=== PATIENT | male | born 1980 | race Hispanic/Latino ===

== ENCOUNTER 2018-05-17 23:01 | Emergency (ER) | payer SELFPAY ==
--- OUTSIDE RECORDS SUMMARY | 2018-05-17 23:03 | XMS REPORT | Continuity of Care Document ---
:1980 Author Organization [facility] Address [address] [place] [address] Phone Unavailable Care Team Providers Name Role Phone AYLIN JENSEN MD Primary Care Physician Insurance Providers Guarantor Manny Peter Address [address] [place] [address] Email NONE Payer [facility] Policy Number [id number] Subscriber's Name Manny Peter Relationship Self / Same As Patient Group Number [id number] Group Name [employer] Advance Directives Directive Response Recorded Date/Time Advance Directive on File No 12/15/17 8:52pm Patient/Family Given Education Material R/T Y - 12/15/17..MA/SBM 12/15/17 8 :52pm Directives? Chief Complaint and Reason for Visit Chief Complaint General Complaint Reason for Visit Methadone withdrawal Gastroenteritis Anxiety about blushing Problems Active ProblemsNo active problem information available. Past Problems Medical Problem Onset Date Status Acute pharyngitis Unknown Acute Anxiety about blushing Unknown Acute Colitis Unknown Acute Dental caries Unknown Acute Gastroenteritis Unknown Acute Ischemic colitis Unknown Acute Left cervical lymphadenopathy Unknown Acute Methadone withdrawal Unknown Acute Pain due to dental caries Unknown Acute Pneumatosis coli Unknown Acute Sorethroat Unknown Acute Medications No medication information available. Social History Social History Problem Response Recorded Date/Time Onset Date Status Hx Physical Abuse No 12/15/2017 8:52pm Not Applicable Not Applicable Smoking Status Start Date Stop Date Current every day smoker Hospital Discharge Instructions No hospital discharge instruction information available. Plan of Care Discharge Date 12/16/17 1:06am Instructions/Education Provided Viral Gastroenteritis, Adult Generalized Anxiety Disorder, Adult Finding Treatment for Addiction Forms Provided Prescription Opioid Use Portal Welcome Letter Prescriptions See Medication Section Referrals AYLIN JENSEN MD Address: [address] [place] [address] Additional Instructions/Education Lorazepam 2mg 1 tab twice daily as needed for anxiety Functional Status No functional status information available. Allergies, Adverse Reactions, Alerts No known allergies. Immunizations No immunization information available. Vital Signs Acute Vital Signs Vital Response Date/Time Blood Pressure 144/69 mm Hg 12/16/2017 1:05am Pulse Pulse Rate (adult) 85 beats per minute (60 - 100) 12/16/2017 1:05am Respiratory Rate 18 breaths per minute (10 - 24) 12/16/2017 1:05am Temperature Source Oral 12/16/2017 1:05am Height 5 ft 11 in 12/15/2017 8:52pm Weight 174 lb 12/15/2017 8:52pm Body Mass Index 24.3 kg/m^2 12/15/2017 8:52pm Results Laboratory Results Test Name Result Units Flags Reference Collection Result Comments Date/Time Date/Time White Blood 17.2 K/ul H 4.0-12.3 12/15/2017 12/15/2017 Count 9:34pm 9:41pm Red Blood Count 5.22 M/ul 3.80-5.80 12/15/2017 12/15/2017 9:34pm 9:41pm Hemoglobin 16.1 g/dl 11.67-17.2 12/15/2017 12/15/2017 2 9:34pm 9:41pm Hematocrit 45.9 % 35.0-51.0 12/15/2017 12/15/2017 9:34pm 9:41pm Mean 88.1 fl 78-96 12/15/2017 12/15/2017 Corpuscular 9:34pm 9:41pm Volume Mean 30.9 pg 26.8-33.4 12/15/2017 12/15/2017 Corpuscular 9:34pm 9:41pm Hemoglobin Mean 35.1 g/dl 32.3-36.7 12/15/2017 12/15/2017 Corpuscular 9:34pm 9:41pm Hemoglobin Concent Red Cell 12.8 % 11.6-15.4 12/15/2017 12/15/2017 Distribution 9:34pm 9:41pm Width Platelet Count 485 K/ul H 115-328 12/15/2017 12/15/2017 9:34pm 9:41pm Mean Platelet 8.3 fl L 8.4-11.8 12/15/2017 12/15/2017 Volume 9:34pm 9:41pm Neutrophils (%) 68.5 % 44.7-82.4 12/15/2017 12/15/2017 (Auto) 9:34pm 9:41pm Lymphocytes (%) 24.4 % 10.0-50.0 12/15/2017 12/15/2017 (Auto) 9:34pm 9:41pm Monocytes (%) 5.7 % 3.9-13.4 12/15/2017 12/15/2017 (Auto) 9:34pm 9:41pm Eosinophils (%) 0.4 % 0.0-6.43 12/15/2017 12/15/2017 (Auto) 9:34pm 9:41pm Basophils (%) 0.9 % H 0.0-0.72 12/15/2017 12/15/2017 (Auto) 9:34pm 9:41pm Prothrombin 10.3 SECONDS 10.3-12.3 12/15/2017 12/15/2017 Time 9:34pm 9:51pm THERAPEUTIC LEVEL: 1.5 to 1.9 times normal range of PT Prothromb Time 0.93 12/15/2017 12/15/2017 International 9:34pm 9:51pm Recommended therapeutic range for patients receiving Ratio warfarin (coumadin) therapy: INR is 2.0 to 3.0 Recommended range for patients with mechanical prosthetic heart valves: INR is 2.5 to 3.5 Activated 29.9 SECONDS 22.5-37.0 12/15/2017 12/15/2017 Partial 9:34pm 9:51pm Thromboplast Time Urine Color YELLOW 12/15/2017 12/15/2017 10:05pm 10:26pm Urine CLEAR CLEAR 12/15/2017 12/15/2017 Appearance 10:05pm 10:26pm Urine Glucose NEGATIVE NEGATIVE 12/15/2017 12/15/2017 10:05pm 10:26pm Urine Bilirubin NEGATIVE NEGATIVE 12/15/2017 12/15/2017 10:05pm 10:26pm Urine Ketones NEGATIVE NEGATIVE 12/15/2017 12/15/2017 10:05pm 10:26pm Urine Specific 1.013 1.003-1.03 12/15/2017 12/15/2017 [place] 0 10:05pm 10:26pm Urine Blood NEGATIVE NEGATIVE 12/15/2017 12/15/2017 10:05pm 10:26pm Urine pH 6.500 5-9 12/15/2017 12/15/2017 10:05pm 10:26pm Urine Protein NEGATIVE NEGATIVE 12/15/2017 12/15/2017 10:05pm 10:26pm Urine NORMAL mg/dL 0.2-1.0 12/15/2017 12/15/2017 Urobilinogen 10:05pm 10:26pm Urine Nitrate NEGATIVE NEGATIVE 12/15/2017 12/15/2017 10:05pm 10:26pm Urine Leukocyte NEGATIVE NEGATIVE 12/15/2017 12/15/2017 Esterase 10:05pm 10:26pm Urine RBC <1 /hpf 0-5 12/15/2017 12/15/2017 10:05pm 10:26pm Urine WBC <1 /hpf 0-5 12/15/2017 12/15/2017 10:05pm 10:26pm Urine <1 /hpf 0-5 12/15/2017 12/15/2017 Epithelial 10:05pm 10:26pm Cells Urine Bacteria None /hpf None 12/15/2017 12/15/2017 Detected Detect 10:05pm 10:26pm Urine Casts None /lpf None 12/15/2017 12/15/2017 Detected Detect 10:05pm 10:26pm Urine Culture NO 12/15/2017 12/15/2017 Reflexed 10:05pm 10:26pm Random Glucose 99 mg/dL 74-106 12/15/2017 12/15/2017 9:34pm 9:56pm Blood Urea 12 mg/dL 6-20 12/15/2017 12/15/2017 Nitrogen 9:34pm 9:56pm Serum 285 280-300 12/15/2017 12/15/2017 Osmolality 9:34pm 9:56pm Creatinine 0.7 mg/dL 0.70-1.20 12/15/2017 12/15/2017 9:34pm 9:56pm Glomerular > 60.00 12/15/2017 12/15/2017 GFR RESULTS ARE REPORTED IN mL/min/1.73m2. Filtration Rate 9:34pm 9:56pm Calc Normal GFR: >60mL/min Moderately decreased GFR: 30-59 mL/min Severely decreased GFR: 15-29 mL/min Kidney Failure (or Dialysis): <15 mL/min The calculated eGFR is not valid for patients younger than 18 years or older than 75 years. BUN/Creatinine 17.1 12-12/15/2017 12/15/2017 Ratio 9:34pm 9:56pm Sodium Level 143 mmol/L 135-145 12/15/2017 12/15/2017 9:34pm 9:56pm Potassium Level 3.7 mmol/L 3.5-5.2 12/15/2017 12/15/2017 9:34pm 9:56pm Chloride Level 102 mmol/L 98-108 12/15/2017 12/15/2017 9:34pm 9:56pm Carbon Dioxide 25 mmol/L 21-32 12/15/2017 12/15/2017 Level 9:34pm 9:56pm Anion Gap 19.7 mEq/L 03-0812/15/2017 12/15/2017 9:34pm 9:56pm Calcium Level 9.9 mg/dL 8.6-10.0 12/15/2017 12/15/2017 9:34pm 9:56pm Total Protein 8.5 g/dL 6.6-8.7 12/15/2017 12/15/2017 9:34pm 9:56pm Albumin 5.0 g/dL 3.5-5.2 12/15/2017 12/15/2017 9:34pm 9:56pm Globulin 3.5 gm/dL 12/15/2017 12/15/2017 9:34pm 9:56pm Albumin/Globuli 1.4 >1.0 12/15/2017 12/15/2017 n Ratio 9:34pm 9:56pm Total Bilirubin < 0.3 mg/dL 0.0-1.2 12/15/2017 12/15/2017 9:34pm 9:56pm Aspartate Amino 16 U/L 15-40 12/15/2017 12/15/2017 Transf 9:34pm 9:56pm (AST/SGOT) Alanine 18 U/L 0-41 12/15/2017 12/15/2017 Aminotransferas 9:34pm 9:56pm e (ALT/SGPT) QG-Lgy-Y-Type 50 pg/mL 0-125 12/15/2017 12/15/2017 Natriuretic 9:34pm 10:00pm Peptide Total Alkaline 59 U/L 40-130 12/15/2017 12/15/2017 Phosphatase 9:34pm 9:56pm Urine NEGATIVE NG/ML NEGATIVE 12/15/2017 12/15/2017 Amphetamines 10:07pm 10:33pm Screen Urine NEGATIVE NG/ML NEGATIVE 12/15/2017 12/15/2017 Barbiturates, 10:07pm 10:33pm Quantitative Urine NEGATIVE NG/ML NEGATIVE 12/15/2017 12/15/2017 Benzodiazepines 10:07pm 10:33pm Screen Urine NEGATIVE NG/ML NEGATIVE 12/15/2017 12/15/2017 Cannabinoids 10:07pm 10:33pm Urine Cocaine NEGATIVE NG/ML NEGATIVE 12/15/2017 12/15/2017 Metabolite 10:07pm 10:33pm Urine Opiates NEGATIVE NG/ML NEGATIVE 12/15/2017 12/15/2017 Screen 10:07pm 10:33pm Urine NEGATIVE NG/ML NEGATIVE 12/15/2017 12/15/2017 Phencyclidine 10:07pm 10:33pm (PCP) Level Methadone Level NEGATIVE NG/ML NEGATIVE 12/15/2017 12/15/2017 10:07pm 10:33pm Propoxyphene NEGATIVE NG/ML NEGATIVE 12/15/2017 12/15/2017 Level 10:07pm 10:33pm Oxycodone Level NEGATIVE NG/ML NEGATIVE 12/15/2017 12/15/2017 10:07pm 10:33pm Urine Drug . 12/15/2017 12/15/2017 DRUGS OF ABUSE CUT-OFF VALUES Screen Note 10:07pm 10:12pm AMPHETAMINES (AMPH) NEGATIVE (CUT OFF CONC: 1000 NG/ML) BARBITUATES (SANDEEP) NEGATIVE (CUT OFF CONC: 200 NG/ML) BENZODIAZEPINES (RADU) NEGATIVE (CUT OFF CONC: 300 NG/ML) CANNABINOIDS (THC) NEGATIVE (CUT OFF CONC: 50 NG/ML) COCAINE (CHICHO) NEGATIVE (CUT OFF CONC: 300 NG/ML) OPIATES (OPI) NEGATIVE (CUT OFF CONC: 300 NG/ML) PHENCYCLIDINE (PCP) NEGATIVE (CUT OFF CONC: 25 NG/ML)METHADONE (MTD) NEGATIVE (CUT OFF CONC: 300 NG/ML) PROPOXYPHENE (PPX) NEGATIVE (CUT OFF CONC: 300 NG/ML) OXYCODONE (OXY) NEGATIVE (CUT OFF CONC: 100 NG/ML) ANY POSITIVE RESULT IS UNCONFIRMED. CONFIRMATION AND QUANTITATION AVAILABLE UPON MD REQUEST. Creatine Kinase 38 U/L 20-200 12/15/2017 12/15/2017 9:34pm 9:56pm Troponin I < 0.30 ng/mL 0.0-0.5 12/15/2017 12/15/2017 9:34pm 10:00pm Creatine Kinase < 1.0 ng/ml 0.0-3.6 12/15/2017 12/15/2017 MB 9:34pm 10:00pm DIAGNOSTIC CITERIA: CKMB CKMB RELATIVE INDEX SUGGESTIVE OF NON-AMI < or=5 N/A CHRISTINE ZONE (INCONCLUSIVE) > 5 < or=4 SUGGESTIVE OF AMI >5 > 4 Myoglobin < 25 ng/mL L 28-72 12/15/2017 12/15/2017 9:34pm 10:00pm Procedures Procedure Status Date Provider(s) EMERGENCY DEPT VISIT Completed 11/21/17 X-ray of chest, single view Completed 12/15/17 ANNELISE GRAY MD Encounters Encounter Location Arrival/Admit Date Discharge/Depart Date Attending Provider Departed [place] 12/15/17 8:42pm 12/16/17 1:06am [facility] Emergency Room [facility] Departed [place] 11/21/17 4:01pm 11/21/17 4:26pm [facility] Recent Diagnosis
[2018-05-17] MEDS ORDERED: LIDOCAINE VISCOUS 2% SOLN 15 ML UDC ONE (23:41)
[2018-05-17] MEDS ORDERED: LIDOCAINE JELLY 2%- 5 ML TUBE ONE (23:43)
[2018-05-17] MEDS ORDERED: CLINDAMYCIN IV 150 MG/ML (4 mL) VIAL ONE (23:45)
[2018-05-18] MEDS ORDERED: HYDROCODONE/APAP 5/325 MG TAB ONE (00:26)
--- NOTE | 2018-05-18 01:02 | EDPHYS ---
Physician Documentation [facility] Name: Manny Peter Age: 37 yrs Sex: Male : 1980 Arrival Date: 05/17/2018 Time: 23:05 Bed 19 Private MD: Hao Kahn ED Physician Russell Dao Historical: - Allergies: 05/17 23:09 No Known Allergies; jb4 - Home Meds: 23:09 None [Active]; jb4 - PMHx: 23:09 None; jb4 - PSHx: 23:09 None; jb4 - Immunization history:: Adult Immunizations up to date, Flu vaccine is not up to date. - Social history:: Smoking status: Patient uses tobacco products, smokes one-half pack cigarettes per day, Patient/guardian denies using alcohol. - Ebola Screening: : No symptoms or risks identified at this time. Vital Signs: 23:09 BP 146 / 105; Pulse 90; Resp 16; Temp 99.1(O); Pulse Ox 100% on R/A; Weight 77.11 kg jb4 (R); Height 5 ft. 11 in. (180.34 cm) (R); Pain 6/10; 05/18 00:00 BP 124 / 84; Pulse 80; Resp 16; Pulse Ox 99% on R/A; jb4 00:45 BP 136 / 98; Pulse 78; Resp 18; Pulse Ox 100% on R/A; jb4 05/17 23:09 Body Mass Index 23.71 (77.11 kg, 180.34 cm) jb4 MDM: 05/17 23:30 Patient medically screened. snw 05/18 00:29 Order name: Hand Left 3 View XRAY snw Administered Medications: 23:44 Drug: Lidocaine Gel 2 % 1 application Route: Mucous Membrane; jb4 05/18 01:10 Follow up: Response: No adverse reaction jb4 05/17 23:44 Drug: Clindamycin 600 mg Route: IM; Site: right gluteus; jb4 05/18 01:10 Follow up: Response: No adverse reaction jb4 00:00 Drug: [place]re[place] 5 mg-325 mg 1 tabs Route: PO; jb4 01:10 Follow up: Response: No adverse reaction; Pain is decreased jb4 Disposition: 07:49 Co-signature as Attending Physician, Russell Dao MD. wa Disposition: 05/18/18 01:01 Discharged to Home. Impression: Cellulitis of left upper limb - hand. - Condition is Stable. - Discharge Instructions: Cellulitis, Adult, Hand Washing, Hand Pain. - Prescriptions for Clindamycin HCl 300 mg Oral Capsule - take 1 capsule by ORAL route every 6 hours for 10 days; 40 capsule. Diclofenac Sodium 75 mg Oral Tablet Sustained Release - take 1 tablet by ORAL route 2 times per day; 30 tablet. - Work release form, Medication Reconciliation Form, Thank You Letter, Antibiotic Education, Prescription Opioid Use form. - Follow up: Private Physician; When: 2 - 3 days; Reason: Recheck today's complaints, Continuance of care, Re-evaluation by your physician. Follow up: Emergency Department; When: As needed; Reason: Worsening of condition. Addendum: 05/25/2018 02:54 Addendum: Pt noted edema to left index knuckle 2 days ago without injury, Full ROM, no s nw fever, area has become a little erythematous per report.. Addendum: Pt A\T\O x 3, calm, Heart with RRR without murmur, Lungs CTA bilaterally, Abd soft, NT, ND, BS + x 4 quads, bilateral lower extremities with pulses intact. Left index finger at proximal MCP with edema, mild erythema, no obvious break in skin, ROM intact but with mild discomfort.. 05/29/2018 10:18 Co-signature as Attending Physician, Russell Dao MD I agree with the assessment and w a plan of care. Signatures: Dispatcher [employer] EDMS Samina Hill, FARSHAD-C VULNERABILITY RESEARCHER-Csnw José Antonio Alcala, RN RN jb4 Russell Dao MD MD wa Corrections: (The following items were deleted from the chart) 05/18 01:11 01:01 05/18/2018 01:01 Discharged to Home. Impression: Cellulitis of left upper limb - jb4 hand. Condition is Stable. Forms are Medication Reconciliation Form, Thank You Letter, Antibiotic Education, Prescription Opioid Use. Follow up: Private Physician; When: 2 - 3 days; Reason: Recheck today's complaints, Continuance of care, Re-evaluation by your physician. Follow up: Emergency Department; When: As needed; Reason: Worsening of condition. snw
--- NOTE | 2018-05-18 01:02 | ER ---
Nurse's Notes [facility] Name: Manny Peter Age: 37 yrs Sex: Male : 1980 Arrival Date: 05/17/2018 Time: 23:05 Bed 19 Private MD: Hao Kahn Diagnosis: Cellulitis of left upper limb-hand Presentation: 05/17 23:09 Presenting complaint: Patient states: I have swelling in my left first knuckle that jb4 started 2 days ago. I did not injure it. 23:09 Transition of care: patient was not received from another setting of care. Onset of jb4 symptoms was May 15, 2018. Risk Assessment: Do you want to hurt yourself or someone else? Patient reports no desire to harm self or others. Initial Sepsis Screen: Does the patient meet any 2 criteria? No. Patient's initial sepsis screen is negative. Initial Sepsis Screen: Does the patient have a suspected source of infection? No. Patient's initial sepsis screen is negative. Care prior to arrival: None. 23:09 Method Of Arrival: Ambulatory jb4 23:09 Acuity: VENANCIO 4 jb4 Triage Assessment: 23:09 General: Appears uncomfortable, slender, well groomed, well developed, well nourished, jb4 Behavior is calm, cooperative, appropriate for age. Pain: Complains of pain in left first knuckle Pain radiates to palmar aspect of distal phalanx of left index finger Pain currently is 6 out of 10 on a pain scale. Quality of pain is described as throbbing, Pain began 2-3 days ago. EENT: No signs and/or symptoms were reported regarding the EENT system. Neuro: Level of Consciousness is awake, alert, obeys commands, Oriented to person, place, time, situation. Cardiovascular: Patient's skin is warm and dry. Respiratory: Airway is patent Respiratory effort is even, unlabored, Respiratory pattern is regular, symmetrical. GI: No signs and/or symptoms were reported involving the gastrointestinal system. : No signs and/or symptoms were reported regarding the genitourinary system. Derm: Skin is intact, Skin is pink, warm \T\ dry. Musculoskeletal: Circulation, motion, and sensation intact. Range of motion: limited in left first finger. Swelling present in left first knuckle left first knuckle is red, swollen, and warm to the touch. Historical: - Allergies: 23:09 No Known Allergies; jb4 - Home Meds: 23:09 None [Active]; jb4 - PMHx: 23:09 None; jb4 - PSHx: 23:09 None; jb4 - Immunization history:: Adult Immunizations up to date, Flu vaccine is not up to date. - Social history:: Smoking status: Patient uses tobacco products, smokes one-half pack cigarettes per day, Patient/guardian denies using alcohol. - Ebola Screening: : No symptoms or risks identified at this time. Screenin:09 Abuse screen: Denies threats or abuse. Nutritional screening: No deficits noted. jb4 Tuberculosis screening: No symptoms or risk factors identified. Fall Risk None identified. Assessment: 23:09 General: see triage assessment.. jb4 05/18 00:00 Reassessment: Patient appears in no apparent distress at this time. Patient and/or jb4 family updated on plan of care and expected duration. Pain level reassessed. Patient is alert, oriented x 3, equal unlabored respirations, skin warm/dry/pink. 01:00 Reassessment: Patient appears in no apparent distress at this time. Patient and/or jb4 family updated on plan of care and expected duration. Pain level reassessed. Patient is alert, oriented x 3, equal unlabored respirations, skin warm/dry/pink. Vital Signs: 05/17 23:09 BP 146 / 105; Pulse 90; Resp 16; Temp 99.1(O); Pulse Ox 100% on R/A; Weight 77.11 kg [facility] (R); Height 5 ft. 11 in. (180.34 cm) (R); Pain 6/10; 05/18 00:00 BP 124 / 84; Pulse 80; Resp 16; Pulse Ox 99% on R/A; jb4 00:45 BP 136 / 98; Pulse 78; Resp 18; Pulse Ox 100% on R/A; jb4 05/17 23:09 Body Mass Index 23.71 (77.11 kg, 180.34 cm) [facility] ED Course: 05/17 23:05 Patient arrived in ED. es 23:06 Hao Kahn MD is Private Physician. es 23:09 Arm band placed on left wrist. jb4 23:09 Patient has correct armband on for positive identification. Bed in low position. Call jb4 light in reach. Side rails up X 1. Pulse ox on. NIBP on. 23:10 Samina Hill FNP-C is PHCP. snw 23:10 Russell Dao MD is Attending Physician. snw 23:15 José Antonio Alcala, RN is Primary Nurse. jb4 23:17 Triage completed. jb4 05/18 00:46 X-ray completed. Portable x-ray completed in exam room. Patient tolerated procedure kw well. 00:47 Hand Left 3 View XRAY In Process Unspecified. EDMS 01:09 No provider procedures requiring assistance completed. Patient did not have IV access jb4 during this emergency room visit. Administered Medications: 05/17 23:44 Drug: Lidocaine Gel 2 % 1 application Route: Mucous Membrane; jb4 05/18 01:10 Follow up: Response: No adverse reaction jb4 05/17 23:44 Drug: Clindamycin 600 mg Route: IM; Site: right gluteus; jb4 05/18 01:10 Follow up: Response: No adverse reaction jb4 00:00 Drug: [place] 5 mg-325 mg 1 tabs Route: PO; jb4 01:10 Follow up: Response: No adverse reaction; Pain is decreased jb4 Outcome: 01:01 Discharge ordered by . snw 01:09 Discharged to home ambulatory, with significant other. jb4 01:09 Condition: stable 01:09 Discharge instructions given to patient, significant other, Instructed on discharge instructions, follow up and referral plans. medication usage, Demonstrated understanding of instructions, follow-up care, medications, Prescriptions given X 2. 01:11 Patient left the ED. jb4 Signatures: Dispatcher [employer] EDVA Samina Hill FNP-C ENGLISH PROFESSOR-Csnw Babita Elliott Kimberlee kw Bryson, James, RN RN jb4 Corrections: (The following items were deleted from the chart) 01: 00:46 Reassessment: Patient appears in no apparent distress at this time. Patient jb4 and/or family updated on plan of care and expected duration. Pain level reassessed. Patient is alert, oriented x 3, equal unlabored respirations, skin warm/dry/pink. jb4
--- NOTE | 2018-05-18 07:50 | RAD REPORT ---
EXAM DESCRIPTION: RAD - Hand Left 3 View - 05/18/2018 12:46 am CLINICAL HISTORY: Left hand pain, soft tissue swelling around the second digit COMPARISON: None. FINDINGS: No fracture, dislocation or periosteal reaction noted. Soft tissues around the left second digit are prominent relative to the adjacent fingers. No air, foreign body, calcification or mass id entifiable in the soft tissues. No acute joint finding. Soft tissues of the dorsum of the hand appear relatively prominent as well. IMPRESSION: Soft tissue swelling around the left second digit as well as prominent soft tissues over the dorsum of the hand. No air, foreign body, calcification or mass of the soft tissues.
== END 2018-05-18 01:11 | disposition home or self-care (01) ==
LOC: ER 23:01
DX: L03.012 Cellulitis of left finger (principal); F17.210 Nicotine dependence, cigarettes, uncomplicated
CPT/HCPCS: 96372; 99284; S0077